=== PATIENT | female | born 1950 | race Caucasian/White ===

== ENCOUNTER → 2021-04-05 12:03 | Outpatient (CLI) | payer OTHER, SELFPAY ==
[2021-04-05 15:22] LABS: Hematocrit 42.5 % (37-47); Hemoglobin 13.6 g/dL (12.0-15.0); Mean Corpuscular Hgb 28.8 pg (27.0-32.0); Mean Platelet Vol. 9.6 fl (6.2-12.0); POSITIVE MORPHOLOGY YES; Platelet Count 236 K/mm3 (150-450); RBC Distribution Width CV 13.3 % (11.6-14.6); RBC Distribution Width SD 44.5 fl (35.1-43.9); Red Blood Count 4.72 M/mm3 (4.2-5.4); White Blood Count 16.2 K/mm3 (4.4-11.0)
[2021-04-05 15:54] LABS: ALB/GLOB Ratio 0.7 RATIO (0.9-2.4); AST(SGOT) 26 U/L (15-37); Alanine Aminotransfer ALT/SGPT 35 U/L (13-56); Albumin, Serum 3.3 g/dL (3.2-5.0); Alkaline Phosphatase 89 U/L (45-117); Anion Gap 11 (5-15); BUN 14 mg/dL (7-18); BUN/Creat Ratio 16.1 RATIO (10-20); Calcium,Total 8.7 mg/dL (8.5-10.1); Chloride 101 mmol/L (98-107); Cholesterol 136 mg/dL (200); Creatinine, Serum 0.87 mg/dL (0.55-1.02); EST Glomerular Filtration Rate 68 mL/min (>60); Est Glom Filt Rate - Afr Amer 83 mL/min (>60); Free T3 1.4 pg/mL (2.18-3.98); Glucose 139 mg/dL (74-106); High Density Lipoprotein 59 mg/dL; Potassium 3.4 mmol/L (3.5-5.1); Protein, Total 8.3 g/dL (6.4-8.2); Sodium Level 137 mmol/L (136-145); T4 Free Direct 1.24 ng/dL (0.76-1.46); Thyroid Stim Hormone (TSH) 1.46 uIU/mL (0.358-3.74); Triglycerides 48 mg/dL; Very Low Density Lipoprotein 10 mg/dL (5-40)
[2021-04-05 16:01] LABS: Hemoglobin A1c 5.6 % (3.8-5.6)
[2021-04-05 16:05] LABS: Vitamin D,25 Hydroxy 16.1 ng/mL
[2021-04-05 18:26] LABS: Scan Smear per Review Criteria MANUAL DIFF
[2021-04-05 18:27] LABS: Differential Indicated MANUAL DIFF
[2021-04-05 18:30] LABS: Lymphocyte 3 % (19-41); Metamyelocyte 2 % (0-1); Monocyte 3 % (0-10); Neutrophil-Band 35 % (0-5); Neutrophil-Segmented 57 % (47-70); Total Cells Counted 100 (MANUAL DIFF)
[2021-04-05 18:31] LABS: Platelet Estimate ADEQUATE (ADEQ); Red Cell Morphology NORM C+C NORMAL (NORM C&C)
[2021-04-05 18:38] LABS: Absolute Lymphocyte Count 0.49 X10^3/uL (0.83-4.51); Absolute Neutrophil Count 14.9 X10^3/uL (2.0-7.7)
[2021-04-07 09:41] LABS: Pathologist Review Reviewed
== END ==
PROVIDERS: PCP Internal Medicine; Visit Provider Internal Medicine
DX: H91.90 Unspecified hearing loss, unspecified ear (principal); H92.02 Otalgia, left ear; R09.89 Other specified symptoms and signs involving the circulatory and respiratory systems
CPT/HCPCS: 36415; 80053; 80061; 82306; 83036; 84439; 84443; 84481; 85025; 86769